=== PATIENT | male | born 1940 | race African-American/Black ===

== ENCOUNTER 2016-12-09 10:47 | Emergency (ER) | payer MEDICARE, BC ==
[~2016-12-09] VITALS: Ht 182.9 cm; Wt 81.0 kg
[2016-12-09] MEDS ORDERED: AMLO10TA80 PO (10:59)
[2016-12-09] MEDS ORDERED: [UNRECOGNIZED DRUG - OTHER] (10:59)
[2016-12-09] MEDS ORDERED: ASPI-1159 PO (10:59)
[2016-12-09 11:37] LABS: BASOPHILS % 0.4 % (0.0-2.0); EOSINOPHILS % 1.5 % (0.0-5.0); HEMATOCRIT. 40.8 % (42.0-52.0); HEMOGLOBIN. 13.9 g/dL (14.0-18.0); LYMPHOCYTES % 28.1 % (20.0-50.0); MEAN CORPUSCULAR HEMOGLOBIN 31.8 pg (28.0-32.0); MEAN CORPUSCULAR VOLUME 93.3 fL (80.0-94.0); MEAN PLATELET VOLUME 7.4 fl (7.4-10.4); MONOCYTES % 11.5 % (2.0-8.0); NEUTROPHILS % 58.5 % (40.0-76.0); PLATELET 141 x1000/uL (130-400); RED BLOOD CELL COUNT 4.37 mill/uL (4.7-6.1)
[2016-12-09 11:52] LABS: CARBON DIOXIDE 31 mEq/L (21-32); CHLORIDE 106 mEq/L (98-107); ETHANOL BLOOD < 10 mg/dL
[2016-12-09 12:00] LABS: CLARITY URINE CLEAR (CLEAR); COLOR URINE YELLOW (YELLOW); GLUCOSE URINE NEGATIVE (NEGATIVE); KETONES URINE NEGATIVE (NEGATIVE); LEUKOCYTE ESTERASE URINE NEGATIVE (NEGATIVE); NITRITE URINE NEGATIVE (NEGATIVE); OCCULT BLOOD URINE TRACE (NEGATIVE); PROTEIN URINE NEGATIVE (NEGATIVE); SPECIFIC GRAVITY URINE 1.015 (1.005-1.030); UROBILINOGEN URINE 0.2 E.U./dL (0.2-1.0)
[2016-12-09 12:17] LABS: *AMPHETAMINES SCREEN URINE NEGATIVE (NEGATIVE); *BARBITURATES SCREEN URINE NEGATIVE (NEGATIVE); *BENZODIAZEPINES SCREEN URINE NEGATIVE (NEGATIVE); *COCAINE SCREEN URINE NEGATIVE (NEGATIVE); CANNABINOID URINE SCREEN NEGATIVE (NEGATIVE); METHADONE URINE SCREEN NEGATIVE (NEGATIVE); OPIATES URINE SCREEN NEGATIVE (NEGATIVE); PHENCYCLIDINE URINE SCREEN NEGATIVE (NEGATIVE)
[2016-12-09 13:24] VITALS: BP 124/62
== END 2016-12-09 13:32 | disposition home or self-care (01) ==
LOC: ER 10:55
DX: M54.12 Radiculopathy, cervical region (principal); I10 Essential (primary) hypertension; Z79.82 Long term (current) use of aspirin
CPT/HCPCS: 36415; 70450; 72125; 80053; 80305; 81001; 82962; 85025; 99285; G0482

== ENCOUNTER → 2018-10-24 | Day surgery (SDC) | payer MEDICARE, BC ==
[~2018-10-24] MED LIST: AMLO10TA80 PO; ASPI-1393 PO; IOHEXOL-300 50 ML BOTTLE IV ONE; [UNRECOGNIZED DRUG - OTHER]
== END | disposition home or self-care (01) ==
LOC: RADANGIO 09:34
PROVIDERS: ATTEND Specialist
DX: Z45.2 Encounter for adjustment and management of vascular access device (principal); N39.0 Urinary tract infection, site not specified; Z79.82 Long term (current) use of aspirin; Z79.899 Other long term (current) drug therapy
CPT/HCPCS: 36573; C1725; Q9967

== ENCOUNTER 2018-10-29 09:51 | Emergency (ER) | payer MEDICARE, BC ==
[~2018-10-29] VITALS: Ht 182.9 cm; Wt 76.0 kg
[~2018-10-29 09:51] MED LIST changes: -IOHEXOL-300 50 ML BOTTLE IV ONE
[2018-10-29 14:10] VITALS: BP 129/66
== END 2018-10-29 14:10 | disposition home or self-care (01) ==
LOC: ER 09:51
DX: T82.524A Displacement of infusion catheter, initial encounter (principal); Y82.8 Other medical devices associated with adverse incidents; Y92.098 Other place in other non-institutional residence as the place of occurrence of the external cause; Z87.440 Personal history of urinary (tract) infections
CPT/HCPCS: 36556; 36573; 99284; C1725

== ENCOUNTER 2023-09-27 15:03 | Emergency (ER) | payer MEDICARE, BC ==
[~2023-09-27] VITALS: Ht 182.9 cm; Wt 77.0 kg
[~2023-09-27 15:03] MED LIST changes: -ASPI-1393 PO; +ASPI-1497 PO
[2023-09-27 16:02] VITALS: O2SAT 99
[2023-09-27] MEDS ORDERED: CEFP200T14 MT (19:14)
[2023-09-27 19:23] VITALS: BP 144/83; PULSE 60; RESP 16; TEMP 98.3
[2023-09-27 20:05] LABS: CLARITY URINE CLEAR (CLEAR); COLOR URINE YELLOW (YELLOW); GLUCOSE URINE NEGATIVE (NEGATIVE); KETONES URINE NEGATIVE (NEGATIVE); LEUKOCYTE ESTERASE URINE 1+ (NEGATIVE); NITRITE URINE NEGATIVE (NEGATIVE); OCCULT BLOOD URINE TRACE (NEGATIVE); PH URINE 6.5 (4.5-8.0); PROTEIN URINE TRACE (NEGATIVE); SPECIFIC GRAVITY URINE 1.019 (1.005-1.030)
[2023-09-27 20:17] LABS: BACTERIA URINE TRACE; RBC URINE 0-2 /hpf (0-2); SQUAMOUS EPITHELIAL CELL URINE 1+ /lpf (RARE/1+)
== END 2023-09-27 19:27 | disposition home or self-care (01) ==
LOC: ER 15:03
DX: N39.0 Urinary tract infection, site not specified (principal); I10 Essential (primary) hypertension; Z98.890 Other specified postprocedural states
CPT/HCPCS: 81003; 99283

== ENCOUNTER → 2024-03-07 | Outpatient (CLI) | payer MEDICARE, BC ==
[~2024-03-07] MED LIST changes: +CEFP200T14 MT
== END | disposition home or self-care (01) ==
LOC: US 10:30
DX: N28.1 Cyst of kidney, acquired (principal); I12.9 Hypertensive chronic kidney disease with stage 1 through stage 4 chronic kidney disease, or unspecified chronic kidney disease; N18.32 Chronic kidney disease, stage 3b; C67.9 Malignant neoplasm of bladder, unspecified; N20.0 Calculus of kidney; E83.9 Disorder of mineral metabolism, unspecified; M89.9 Disorder of bone, unspecified; Z90.5 Acquired absence of kidney
CPT/HCPCS: 76770